=== PATIENT | female | born 1960 | race Caucasian/White ===

== ENCOUNTER → 2018-12-18 | Outpatient (CLI) | payer OTHER | END | disposition home or self-care (01) | LOC: LAB SHORT 13:43 → LAB EV 13:43 | DX: N39.0 Urinary tract infection, site not specified (principal) | CPT/HCPCS: 87086 ==

== ENCOUNTER → 2022-03-10 | Outpatient (CLI) | payer OTHER | END | disposition home or self-care (01) | LOC: LAB 09:40 → LAB SHORT 09:40 | DX: R30.0 Dysuria (principal) | CPT/HCPCS: 87077; 87086; 87186 ==

== ENCOUNTER 2022-11-30 19:11 | Emergency (ER) | payer OTHER ==
[~2022-11-30] VITALS: Ht 157.5 cm; Wt 95.2 kg
== END 2022-11-30 22:15 | disposition home or self-care (01) ==
LOC: ER 19:11
DX: S52.572A Other intraarticular fracture of lower end of left radius, initial encounter for closed fracture (principal); W01.0XXA Fall on same level from slipping, tripping and stumbling without subsequent striking against object, initial encounter; Z88.5 Allergy status to narcotic agent
CPT/HCPCS: 73110; A9270

== ENCOUNTER 2022-12-09 06:06 | Day surgery (SDC) | payer OTHER ==
[~2022-12-09] VITALS: Ht 157.5 cm; Wt 99.9 kg
[2022-12-09] MEDS ORDERED: Aspirin325 MG (07:02)
[2022-12-09] MEDS ORDERED: CENTRUM SILVER1 EAC2 PO (07:02)
--- NOTE | 2022-12-09 08:12 | NUR ---
12/09/22 0811 JESSICA SILVERMAN 0.1MG OF EPI ADDED TO 20MLS OF ROPIVACAINE 0.5% TO CREATE A LOCAL SOLUTION OF ROPIVACAINE 0.5% WITH EPI 1:200,000. LOCAL POURED ONTO STERILE FIELD FOR USE DURING CASE.
--- NOTE | 2022-12-09 09:38 | NUR ---
12/09/22 0938 FAIZAN QUINONES PT LEFT HAND FINGERS SWOLLEN AND LEFT FOREARM WARM TO TOUCH/ RESORT KEEPER MELINA ASSESSED AND CONCURED THTAT IT WAS DUE TO THE TOURNEQUET AND THE SPLINT REACTION. DR VASQUEZ AT BEDSIDE. PT VITALS STABLE AND SATS 94-97% RA. PT UP TO BATHROOM TO VOID WITH RN SBA
== END 2022-12-09 10:07 | disposition home or self-care (01) ==
LOC: ORSCSDS 06:06
PROVIDERS: Orthopaedic Surgery
PROC: 0PSJ04Z Reposition Left Radius with Internal Fixation Device, Open Approach (ICD-10-PCS; principal; 2022-12-09 08:00)
DX: S52.502A Unspecified fracture of the lower end of left radius, initial encounter for closed fracture (principal); J45.909 Unspecified asthma, uncomplicated; F17.210 Nicotine dependence, cigarettes, uncomplicated; Z79.82 Long term (current) use of aspirin
CPT/HCPCS: C1713; J0690; J1100; J2250; J2405; J2704; J2795; J3010; J7120